=== PATIENT | female | born 1960 | race Caucasian/White ===

== ENCOUNTER 2016-07-06 12:56 | Emergency (ER) | payer OTHER | END 2016-07-06 14:15 | disposition home or self-care (01) | LOC: ER 12:56 | DX: L03.213 Periorbital cellulitis (principal); I10 Essential (primary) hypertension; F17.210 Nicotine dependence, cigarettes, uncomplicated; Z88.5 Allergy status to narcotic agent; Z79.899 Other long term (current) drug therapy | CPT/HCPCS: 99282 ==